=== PATIENT | female | born 1990 | race Caucasian/White ===

== ENCOUNTER 2018-12-20 10:00 | Inpatient (IN) ==
[2018-12-20] MEDS ORDERED: Metoclopramide 10 MG/2 ML VIAL IVP PRN (10:29)
[2018-12-20] MEDS ORDERED: *HR* Nalbuphine 10 MG/ML AMPUL IVP PRN (10:29)
[2018-12-20] MEDS ORDERED: Ondansetron 4 MG/2 ML VIAL IVP PRN (10:29)
[2018-12-20] MEDS ORDERED: Naloxone 0.4 MG/ML INJ IVP PRN (10:29)
[2018-12-20] MEDS ORDERED: Lidocaine 1% 20 ML MDV ID PRN (10:29)
[2018-12-20] MEDS ORDERED: Famotidine 20 MG/2 ML VIAL IVP PRN (10:29)
[2018-12-20] MEDS ORDERED: Ringers Solution, Lactated 1,000 ML IVC SCH (10:30)
[2018-12-20] MEDS ORDERED: miSOPROStol 25 MCG TABLET PO PRN (10:31)
[2018-12-20 11:23] LABS: Basophils % 0.2 %; Eosinophils # 0.1 K/mcL (0.0-0.6); Eosinophils % 0.8 %; Hematocrit 36.7 % (35.3-44.9); Immature Granulocytes % 0.4 % (0-4); Lymphocytes # 1.7 K/mcL (0.6-4.6); Lymphocytes % 16.1 %; Mean Corpuscular HGB Conc 32.7 g/dL (31.6-35.5); Mean Corpuscular Hemoglobin 28.5 pg (28.0-33.3); Mean Corpuscular Volume 87.2 fL (83.0-100.0); Mean Platelet Volume 10.2 fL (9.4-12.4); Monocytes # 0.5 K/mcL (0.0-1.3); Monocytes % 5.1 %; Platelet Count 188 K/mcL (140-400); Red Blood Count 4.21 M/mcL (3.82-4.97); Red Cell Distribution Width 14.5 % (11.5-14.5); Segmented Neutrophils % 77.4 %; White Blood Count 10.3 K/mcL (4.3-11.1)
--- NOTE | 2018-12-20 11:25 | Anesthesia Evaluation PreOp ---
Date of Encounter: 12/20/18 Time of Encounter: 11:23 - Past History Planned Operation: Del, term induction Cardiac History: Denies any Significant Hx Pulmonary History: Denies Any Significant HX AIR SEALING TECHNICIAN History: Denies Any Significant HX Other Medical History: Other ([place], BMI 46) Anesthesia History: No Prior Anesthetic Complications, Past Anesthesia (one previous epidural placed "but not hooked up," no other known anes comp.) Alcohol Use: none Drug use: none Medications and Allergies Tablet 12/20/18 [History] Allergy/AdvReac Type Severity Reaction Status Date / Time No Known Allergies Allergy Verified 12/20/18 10:57 Anesthesia Exam - HEENT Pupil (Motor): Pupils equal Mallampati: III Teeth: Normal Oral Opening: Greater than 3 - AIR SEALING TECHNICIAN LOC: Oriented AIR SEALING TECHNICIAN Motor: Normal RUE, Normal LUE, Normal RLE, Normal LLE, Normal Face AIR SEALING TECHNICIAN Sensory: Normal: RUE, LUE, RLE, LLE, Face - Cardiac Rhythm: Regular Murmur: None - Pulmonary Breath Sounds: bilateral Clear Respiratory Effort: Symmetrical Anesthesia Assess/Plan ASA Score: 3 Level of consciousness: Cooperative, Oriented Anesthetic Plan: General, Spinal, Epidural Monitoring Plan: Standard Monitors Recovery Plan: PACU
[2018-12-20] MEDS ORDERED: Epidural Premix (fent/bupiv) 110 ML EP SCH (11:30)
[2018-12-20 11:31] LABS: Amphetamine Screen,Urine Negative ng/mL (Cutoff=1000); Barbiturate Screen,Urine Negative ng/mL (Cutoff=200); Benzodiazepines Screen,Urine Negative ng/mL (Cutoff=200); Cannabinoid Screen,Urine Negative ng/mL (Cutoff = 50); Cocaine Screen,Urine Negative ng/mL (Cutoff= 300); Opiate Screen,Urine Negative ng/mL (Cutoff=300); Phencyclidine Screen,Urine Negative ng/mL (Cutoff=25)
--- NOTE | 2018-12-20 13:12 | OB/GYN History & Physical ---
Date of Encounter: 12/20/18 Time of Encounter: 13:00 Assessment and Plan (1) 39 weeks gestation of Current visit: Yes Status: Acute Admit for IOL GBS negative May have nubain / epidural upon request Pitocin induction Anticipate vaginal delivery POC per consult with Dr Reed History of Present Illness Chief complaint: Elective IOL HPI: Ms. Marcus is a 28 year old at 39 weeks and 2 days that presents to L&D for scheduled elective term IOL due to patient's family leaving for vacation next week. She is fearful of having a at home without any help. She states positive movement. She denies headaches, vision changes, epigastric pain, and leaking of fluid. She denies feeling contractions as seen on monitor. She states her first delivery ended with an epis and vacuum delivery. Labs: GBS negative Blood type O- Rubella immune Varicella nonimmune Hep B NR Hep C NR HIV NR RPR neg Past Med Surg Social Fam HX - Past Medical History Medical history: no medical history Psychiatric history: anxiety, depression - Past Surgical History Surgical History: no surgical history - Social History Smoking Status: Never smoker Smokeless Tobacco Status: No Alcohol use: none Drug use: none - Family History Mother Adopted: No Living Status: Still Living Hx Family Cardiac Disorders: Yes (htn) Hx Family Respiratory Disorders: No Hx Family Cancer: No Hx Family GI Disorders: No Hx Family Genitourinary Disorders: No Hx Family Endocrine Disorder: No Hx Family Musculoskeletal Disorders: No Hx Family Neuromuscular Disorders: No Hx Family Neurologic Disorders: No Hx Family HEENT Disorders: No Hx Family Autoimmune Disorders: No Hx Family Reproductive Disorders: No Hx Family Psychosocial Disorders: No Hx Family Medical Disorders: No Obstetrical History - Pregnancies : 4 Para: 2 Term: 2 : 0 Ab's: 1 Livin Medications and Allergies Tablet 12/20/18 [History] Allergy/AdvReac Type Severity Reaction Status Date / Time No Known Allergies Allergy Verified 12/20/18 10:57 Review of System OB All systems PM: reviewed and no additional remarkable complaints except as stated Exam - Constitutional Constitutional: well developed, well nourished, no acute distress, obese - HEENT HEENT: Normocephaly, Mucus Membranes Moist - Lungs Respiratory exam: CTAB - Cardiovascular Cardiovascular exam: RRR, +S1, +S2 - Abdomen Abdomen: Present: bowel sounds normal, gravid, non tender - Extremities Extremities exam: normal capillary refill, normal inspection, pedal edema, radial pulses palpable and symmetrical Deep Tendon Reflex Grade: 2+ Normal - Anus/Rectum Anus/Rectum: Present: normal perianal skin - Comments Comments: FHTs 135 moderate variability 15 x 15 accels no decels contractions every 2-4 minutes mild to palpation Results Result Diagrams: 12/20/18 11:00 All other labs normal. - VTE Reasons for not Prescribing Prophylaxis: Treatment not Indicated - Low risk for VTE
[2018-12-20] MEDS ORDERED: Oxytocin 20 units/ LR 1000 mL 20 UNIT/1,000 ML BAG IVC ONE (15:52)
[2018-12-20] MEDS ORDERED: Oxytocin 20 units/ LR 1000 mL 20 UNIT/1,000 ML BAG IVC SCH (16:00)
--- NOTE | 2018-12-21 03:51 | Anesthesia Procedures ---
Date of Encounter: 12/21/18 Time of Encounter: 02:57 Procedures: Anesthesia - Epidural/Spinal Patient ID/Chart reviewed: Yes Patient examined: Yes OB Eval: Gestational age: term OB Eval: Contractions: Non-stressed pattern Consent Obtained: Yes Supplemental Oxygen: None/Room Air Site Prep: Aseptic Technique, Sterile prep and drape, 0.5% Chlorhexidine/Alcohol Patient position: upright Local Anesthetic: Lidocaine 1% Amount of Local Anesthetic used: 2 Touhy Needle Gauge: 18 Touhy Needle Depth (cm): 8 Catheter Depth at Skin (cm): 12 Test Dose (1.5% Lido + Epi): Volume given (mls): 4 Test Dose Result: Negative Loading Dose: Other: 10ml from solution Loading Dose Administered: Thru Catheter Infusion Med: 0.125% Bupivacaine w/ 2 mcg/ml Fentanyl Infusion Rate (mls/hr): [address]: Tegaderm, Tape Interspace Used: L3-L4 Loss of Resistance (LILIAN): Yes (saline) Blood: No CSF: Yes (25g purposeful, no inj) Paresthesia: No Procedure: vss though out procedure, FHR stable per RN's
--- NOTE | 2018-12-21 04:59 | Event Note ---
Date of Encounter: 12/20/18 Time of Encounter: 22:00 IOL delayed due to triage of labors; this IOL was elective and fetus is reactive. Discussed with patient. Pitocin started this evening.
--- NOTE | 2018-12-21 05:05 | OB Labor Progress Note ---
Date of Encounter: 12/21/18 Time of Encounter: 04:59 Labor Progress Note - Subjective Subjective: Patient resting comfortably in bed with epidural in place. - Vital Signs Vital Signs: VSS - Cervix Cervix: SROM at 0147 for clear fluid /-2 per RN exam - Heart Tones Heart Tones: 130 moderate variability with 15 x 15 accels - [place]: Contractions every 3-6 minutes - Plan Plan: Continue routine labor management Continue to titrate pitocin Anticipate vaginal delivery POC per consult with Dr Reed
[2018-12-21] MEDS ORDERED: *HR* Ropivacaine/PF 0.5% 20 ML VIAL ONE (06:42)
--- NOTE | 2018-12-21 12:01 | OB/GYN Procedure Note ---
Delivery - Delivery Date: 12/21/18 Provider: Vee Aparicio Intrapartum events: prolonged labor- > = 20hr Delivery induction: oxytocin Delivery monitor: external FHT, external uterine Anesthesia: epidural Quantitated Blood Loss: 400 - Infant (s) A Infant Delivery Date: 12/21/18 Delivery Time: 11:12 Presentation: vertex Position: OP Route of delivery: Gender: Female Viability: Viable Pounds: 8 Ounces: 7 Weight Gram: 3835 kg at 1 minute: 8 at 5 mins: 9 Shoulder Dystocia: not encountered Specimens collected: cord blood Placenta: spontaneous, uterine exploration Cord: 3 umbilical vessels - Repair Episiotomy: none Laceration Description: Perineal - 1st Degree (repaired with 3-0 vicryl) - Complications Delivery complications: none - Disposition Mom disposition: stable in LDR disposition: stable in LDR - Comments Comments: Called to LDR patient completed and feeling urge to push. Patient was placed in stirrups. I was gowned and gloved and together with Dr. Buenrostro, PGY1 delivered a viable female infant over a 1st degree laceration. No nuchal cord, shoulder dystocia or meconium was encountered. was placed on maternal abdomen. Cord was clamped and cut after pulsations ceased. Cord blood was collected along with a cord segment. The first degree laceration was repaired with 3-0 vicryl. The placenta delivered spontaneously and visually intact. The uterus was explored for blood clots. EBL 400cc, Apgars 8/9. All counts correct. Pericare provided. Both Mother and stable in LDR for 2 hour recovery.
[2018-12-21] MEDS ORDERED: Measles/Mumps/Rubella Vacc 0.5 ML VIAL SQ PRN (13:31)
[2018-12-21] MEDS ORDERED: Acetaminophen 325 MG TABLET PO PRN (13:31)
[2018-12-21] MEDS ORDERED: Benzocaine/Menthol 56 GM AEROSOL SPRAY TP PRN (13:31)
[2018-12-21] MEDS ORDERED: Oxytocin 20 units/ LR 1000 mL 20 UNIT/1,000 ML BAG IVC SCH (13:31)
[2018-12-21] MEDS ORDERED: Lanolin 7 G OINT...G. TP PRN (13:31)
[2018-12-21] MEDS ORDERED: *HR* HYDROcodone/Acet 5/325 mg TABLET PO PRN (13:31)
[2018-12-21] MEDS ORDERED: Rho Immune Globulin 1,500 UNIT SYRINGE IM PRN (13:31)
[2018-12-21] MEDS: Ibuprofen 600 MG TABLET PO PRN (22:08)
[2018-12-22 07:40] VITALS: BP 90/58
[2018-12-22] MEDS: Ibuprofen 600 MG TABLET PO PRN (08:11)
[2018-12-22] MEDS ORDERED: Prenatal Vit/FA 1 EACH TABLET PO SCH (09:00)
--- NOTE | 2018-12-22 12:39 | Discharge Summary ---
Date of Encounter: 12/22/18 Time of Encounter: 12:37 - Discharge Diagnosis (1) Vaginal delivery Priority: Primary Status: Acute Comments: Patient meeting day one milestones. Pain well-controlled with prescribed medications. Voiding without difficulty, tolerating regular diet, bleeding light. Positive bowel movement. Anticipate discharge today (2) Breast feeding status of mother Priority: Secondary Status: Acute Comments: support as needed. RX for breast pump given. (3) First degree perineal laceration during delivery Priority: Secondary Status: Acute Comments: Motrin, ice packs, Dermoplast as needed for discomfort. - Discharge Medications Prescriptions: New Breast Pump [BREAST PUMP] 1 each .ROUTE AD #1 each Docusate [Colace] 100 mg PO BID capsule Benzocaine/Menthol Dent [Dermoplast Dent] 1 appl TP QID PRN aerosol PRN Reason: See Comments Lanolin [Lansinoh] 1 appl TP TID PRN oint...g. PRN Reason: Sore Nipples Ibuprofen [Motrin] 600 mg PO Q6HR PRN #60 tablet PRN Reason: Cramping Acetaminophen [Tylenol] 650 mg PO Q6HR PRN tablet PRN Reason: Mild Pain Continued Tablet Home Medications: Tablet 12/20/18 [History] Acetaminophen [Tylenol] 650 mg PO Q6HR PRN tablet 12/22/18 [Rx] Benzocaine/Menthol Dent [Dermoplast Dent] 1 appl TP QID PRN aerosol 12/22/18 [Rx] Breast Pump [BREAST PUMP] 1 each .ROUTE AD #1 each 12/22/18 [Rx] Docusate [Colace] 100 mg PO BID capsule 12/22/18 [Rx] Ibuprofen [Motrin] 600 mg PO Q6HR PRN #60 tablet 12/22/18 [Rx] Lanolin [Lansinoh] 1 appl TP TID PRN oint...g. 12/22/18 [Rx] Allergies/Adverse Reactions: Allergy/AdvReac Type Severity Reaction Status Date / Time No Known Allergies Allergy Verified 12/20/18 10:57 Data Procedures and tests throughout hospitalization: Laboratory Tests 12/20/18 12/20/18 12/21/18 11:00 11:00 12:25 WBC 10.3 RBC 4.21 Hgb 12.0 Hct 36.7 MCV 87.2 MCH 28.5 MCHC 32.7 RDW 14.5 Plt Count 188 MPV 10.2 Immature Gran % 0.4 Seg Neutrophils % 77.4 Lymphocytes % 16.1 Monocytes % 5.1 Eosinophils % 0.8 Basophils % 0.2 Neutrophils # 8.0 Lymphocytes # 1.7 Monocytes # 0.5 Eosinophils # 0.1 Basophils # 0.0 Urine Opiates Screen Negative Ur Buprenorphine Scrn Negative Ur Barbiturates Screen Negative Ur Phencyclidine Scrn Negative Ur Amphetamines Screen Negative U Benzodiazepines Scrn Negative Urine Cocaine Screen Negative U Marijuana (THC) Screen Negative Ur Drug Screen Interp See Below Screen NEGATIVE Baby's Blood Type O RH POSITIVE Mother's Blood Type O RH NEGATIVE Rhogam Indicated YES Rhogam Req for Mother 1 Labs on day of discharge: Labs from last 24 hours 12/21/18 12:25 Screen NEGATIVE Baby's Blood Type O RH POSITIVE Mother's Blood Type O RH NEGATIVE Rhogam Indicated YES Rhogam Req for Mother 1 Date of admission: 12/20/18 10:05 Primary care physician: PCP NONE Consults: 12/21/18 13:31 Consult to Beauty Director [CONS] Routine Comment: Vaginal delivery, consult needed Discharging clinician: Kay Calixto Anticipated date of discharge: 12/22/18 - Patient Status Disposition: Home, Self-Care Condition: Good Functional capacity at discharge: independent ambulation Overall status at discharge: patient is progressing back to baseline - Discharge Instructions Follow Up With: NONE,PCP [Primary Care Provider] - - Diet and Activity Activity: resume usual activities as tolerated Diet: regular diet Hospital Course Reason for admission: active labor Delivery: Episiotomy: none Laceration: none Other procedures: none complications: none Discharge diagnosis: IUP at term delivered [place] baby: female Hospital course: Delivery Date: 12/21/18 Provider: Vee Aparicio Intrapartum events: prolonged labor- > = 20hr Delivery induction: oxytocin Delivery monitor: external FHT, external uterine Anesthesia: epidural Quantitated Blood Loss: 400 - Infant (s) Infant A Infant Delivery Date: 12/21/18 Infant Delivery Time: 11:12 Presentation: vertex Position: OP Route of delivery: Gender: Female Viability: Viable Pounds: 8 Ounces: 7 Weight Gram: 3835 kg at 1 minute: 8 at 5 mins: 9 Shoulder Dystocia: not encountered Specimens collected: cord blood Placenta: spontaneous, uterine exploration Cord: 3 umbilical vessels - Repair Episiotomy: none Laceration Description: Perineal - 1st Degree (repaired with 3-0 vicryl) - Complications Delivery complications: none - Disposition Mom disposition: stable in LDR [place] disposition: stable in LDR - Comments Comments: Called to LDR patient completed and feeling urge to push. Patient was placed in stirrups. I was gowned and gloved and together with Dr. Buenrostro, PGY1 delivered a viable female infant over a 1st degree laceration. No nuchal cord, shoulder dystocia or meconium was encountered. was placed on maternal abdomen. Cord was clamped and cut after pulsations ceased. Cord blood was collected along with a cord segment. The first degree laceration was repaired with 3-0 vicryl. The placenta delivered spontaneously and visually intact. The uterus was explored for blood clots. EBL 400cc, Apgars 8/9. All counts correct. Pericare provided. Both Mother and infant stable in LDR for 2 hour recovery. Time Attestation: Total time spent providing and/or coordinating discharge services: Time Spent: Less than 30 minutes Exam - Constitutional Vitals: Temp Pulse Resp BP Pulse Ox 97.9 F 74 16 90/58 99 12/22/18 07:38 12/22/18 07:38 12/22/18 07:38 12/22/18 07:38 12/22/18 07:38 General appearance IM: A&O X 3, pleasant, no acute distress, answers questions appropriately - Respiratory Respiratory exam: Present: CTAB. Absent: respiratory distress - Cardiovascular Cardiovascular exam IM: Present: RRR, +S1, +S2. Absent: irregular rhythm - GI/Abdominal GI/Abdominal exam IM: normal bowel sounds - Rectal Rectal exam: deferred - External exam: normal external exam Uterine Tone: Firm Uterus Position: At Umbilicus, Midline - Extremities Exam Extremities exam IM: Present: full ROM, normal capillary refill, normal inspection. Absent: calf tenderness - Neurological Exam Neurological exam: alert, normal gait, oriented X3
== END 2018-12-22 13:10 | disposition home or self-care (01) | DRG 560 ==
LOC: 1NENULAB 10:05 → 1NENUOBS 12-21 13:32
PROVIDERS: ADMIT Advanced Practice Midwife; ATTEND Advanced Practice Midwife